=== PATIENT | male | born 1990 | race Caucasian/White ===

== ENCOUNTER 2018-02-25 02:55 | Emergency (ER) | payer OTHER ==
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
[2018-02-25 06:23] VITALS: BP 112/81
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
== END 2018-02-25 06:26 | disposition home or self-care (01) ==
LOC: ED 02:55
DX: S60.511A Abrasion of right hand, initial encounter (principal); Y04.0XXA Assault by unarmed brawl or fight, initial encounter; Y92.9 Unspecified place or not applicable; F17.200 Nicotine dependence, unspecified, uncomplicated
CPT/HCPCS: 99282